=== PATIENT | male | born 2000 | race African-American/Black ===

== ENCOUNTER 2020-05-05 22:01 | Emergency (ER) | payer BC ==
[2020-05-05] MEDS ORDERED: Lidocaine 1% PF 5 ML VIAL ONE (22:51)
[2020-05-05] MEDS ORDERED: Boostrix 0.5 ML (Tdap) VIAL ONE (22:51)
== END 2020-05-05 23:30 ==
LOC: ERS 22:01
DX: S61.210A Laceration without foreign body of right index finger without damage to nail, initial encounter (principal); W25.XXXA Contact with sharp glass, initial encounter
CPT/HCPCS: 12001; 12041; 90471; 90715